=== PATIENT | male | born 1980 | race Hispanic/Latino ===

== ENCOUNTER 2021-08-07 06:39 | Emergency (ER) | payer SELFPAY ==
[~2021-08-07] VITALS: Ht 167.6 cm; Wt 68.0 kg
[2021-08-07 08:14] VITALS: BP 137/86
[2021-08-07] MEDS ORDERED: DOXY-336 PO (08:39)
== END 2021-08-07 08:49 | disposition home or self-care (01) ==
LOC: EDH 06:39
DX: M79.641 Pain in right hand (principal); M79.642 Pain in left hand
CPT/HCPCS: 73130

== ENCOUNTER 2022-09-24 15:41 | Emergency (ER) | payer OTHER ==
[~2022-09-24] VITALS: Ht 167.6 cm; Wt 74.8 kg
[~2022-09-24 15:41] MED LIST: DOXY-469 PO
[2022-09-24 16:56] LABS: BASOPHILS % (AUTO) 0.9 % (0.0-5.0); EOSINOPHILS % (AUTO) 1.2 % (0.0-8.0); LYMPHOCYTES % (AUTO) 27.1 % (21.0-51.0); MEAN CORPUSCULAR HGB CONC 29.5 g/dL (32.0-36.0); MEAN CORPUSCULAR VOLUME 74.7 fL (79-99); MONOCYTES % (AUTO) 7.1 % (3.0-13.0); NEUTROPHILS % (AUTO) 63.2 % (40.0-77.0); PLATELET COUNT (AUTO) 243 K/uL (130-400); RED BLOOD CELL COUNT(AUTO) 5.22 MIL/uL (4.50-6.20); RED CELL DISTRIBUTION WIDTH 14.6 % (11.0-15.5); WHITE BLOOD COUNT (AUTO) 10.8 K/uL (4.8-10.8)
[2022-09-24 17:08] LABS: POTASSIUM 4.2 mmol/L (3.5-5.1)
[2022-09-24 17:13] LABS: ALBUMIN 4.1 g/dL (3.5-5.0); TOTAL PROTEIN, SERUM 7.7 g/dL (6.0-8.3)
[2022-09-24 18:40] LABS: APPEARANCE,URINE CLEAR (CLEAR); BILIRUBIN,URINE NEGATIVE (NEGATIVE); COLOR,URINE LIGHT-YELLOW (YELLOW); GLUCOSE, URINE (UA) NEGATIVE (NEGATIVE); KETONES,URINE NEGATIVE (NEGATIVE); LEUKOCYTE ESTERASE ,URINE NEGATIVE Leu/uL (NEGATIVE); NITRATE,URINE NEGATIVE (NEGATIVE); OCCULT BLOOD,URINE NEGATIVE (NEGATIVE); PROTEIN,URINE NEGATIVE (NEGATIVE); UROBILINOGEN,URINE 0.2 mg/dL (0.2-1.0)
[2022-09-24 18:44] LABS: MUCUS,URINE RARE LPF (None Seen); WBC,URINE 0-1 /HPF (0-1)
[2022-09-24] MEDS ORDERED: LIDOCAINE HCL 2% VISCOUS 15 ML UDCUP PO ONE (20:30)
[2022-09-24] MEDS ORDERED: MAG/ALUM/SIMETH 30 ML UDCUP ONE (20:32)
[2022-09-24] MEDS ORDERED: DICYCLOMINE HCL 10 MG/5 ML ML PO ONE (20:32)
[2022-09-24 21:32] VITALS: BP 122/71
== END 2022-09-24 21:33 | disposition home or self-care (01) ==
LOC: EDBD 15:41 → EDH 15:41
DX: R10.13 Epigastric pain (principal); Z79.2 Long term (current) use of antibiotics
CPT/HCPCS: 36415; 74176; 80053; 81001; 83690; 85025